=== PATIENT | female | born 1960 | race Caucasian/White ===

== ENCOUNTER 2017-01-05 16:32 | Emergency (ER) | payer OTHER ==
[2017-01-05 16:45] VITALS: BP 151/86
--- NOTE | 2017-01-05 17:06 | UC ---
Skin Complaint HPI - HPI Summary HPI Summary: First noticed itchy red spot on L forearm 7 days ago; later that day it started blistering up and growing. Since then patch on arm became very large and has been weeping/leaking. Also has developed itchy spots on R arm, L groin, under L breast, now coming up R neck. Is trying many OTC poison karena relievers, but is worried that it is still spreading. Denies pain, fever. - History of Current Complaint Chief Complaint: UCSkin Time Seen by Provider: 01/05/17 16:50 Stated Complaint: RASHES ALL OVER Hx Obtained From: Patient ?: No Onset/Duration: Gradual Onset, Lasting Days Skin Exposure Onset/Duration: Days Ago Timing: Constant Onset Severity: Mild Current Severity: Moderate Location: Diffuse Character: Pruritus, Redness, Raised Aggravating: Touch Alleviating: OTC Creams/Salves Associated Signs & Symptoms: Positive: Rash. Negative: Abdominal Pain - Allergy/Home Medications Allergies/Adverse Reactions: Allergies Allergy/AdvReac Type Severity Reaction Status Date / Time Benzocaine Allergy Airway Verified 01/05/17 16:45 Obstruction Home Medications: Home Medications Atorvastatin* [Lipitor 40 MG*] 40 mg PO DAILY 01/05/17 [History Confirmed ] Valsartan TAB* [Diovan TAB*] 160 mg PO DAILY 01/05/17 [History Confirmed ] Review of Systems Constitutional: Negative Skin: Rash Eyes: Negative ENT: Negative Respiratory: Negative Cardiovascular: Negative Gastrointestinal: Negative Genitourinary: Negative Motor: Negative Neurovascular: Negative Musculoskeletal: Negative Neurological: Negative Psychological: Negative All Other Systems Reviewed And Are Negative: Yes PMH/Surg Hx/FS Hx/Imm Hx Cardiovascular History: Hypertension - Surgical History Surgical History: None - Family History Known Family History: Positive: Hypertension - Social History Occupation: Employed Full-time Alcohol Use: Daily Substance Use Type: None Smoking Status (MU): Never Smoked Tobacco Physical Exam Triage Information Reviewed: Yes Appearance: Well-Appearing, No Pain Distress, Well-Nourished Vital Signs: Initial Vital Signs Temp 97.8 F 01/05/17 16:39 Pulse 94 01/05/17 16:39 Resp 18 01/05/17 16:39 BP 151/86 01/05/17 16:39 Pulse Ox 100 01/05/17 16:39 Vital Signs Reviewed: Yes Eye Exam: Normal Eyes: Positive: Conjunctiva Clear ENT Exam: Normal ENT: Positive: Normal ENT inspection, Hearing grossly normal, Pharynx normal, TMs normal Dental Exam: Normal Neck exam: Normal Respiratory Exam: Normal Respiratory: Positive: Chest non-tender, Lungs clear, Normal breath sounds, No respiratory distress, No accessory muscle use Cardiovascular Exam: Normal Cardiovascular: Positive: RRR, No Murmur Musculoskeletal Exam: Normal Neurological Exam: Normal Neurological: Positive: Alert Psychological Exam: Normal Skin Exam: Other - crusted, irregular, vesicular and open areas on bilat arms, R neck, L groin, under R breast Course/Dx - Differential Diagnoses - Skin Complaint Differential Diagnoses: Allergic Reaction, Cellulitis, Contact Dermatitis, Poison Karena, Poison [place] - Diagnoses Provider Diagnoses: contact dermatitis Discharge - Discharge Plan Condition: Stable Disposition: HOME Prescriptions: predniSONE TAB* [Deltasone TAB*] 50 mg PO DAILY #5 tab Patient Education Materials: Contact Dermatitis (ED) Referrals: Nelly Beck MD [Primary Care Provider] - Additional Instructions: You can leave the small areas uncovered and unbandaged, but the large patches of weepy skin should be covered until they stop draining. I recommend you use vaseline or an antibiotic ointment (or your hydrocortisone cream) to prevent the bandages from sticking to your skin. If you have growing redness, increasing pain, or any other change for the worse , please return here right away.
== END 2017-01-05 17:33 | disposition home or self-care (01) ==
LOC: UCEAST 16:32
DX: L25.9 Unspecified contact dermatitis, unspecified cause (principal); I10 Essential (primary) hypertension
CPT/HCPCS: 99211; G0463